=== PATIENT | female | born 1960 | race African-American/Black ===

== ENCOUNTER 2024-12-09 17:11 | Emergency (ER) | payer OTHER ==
[~2024-12-09] VITALS: Ht 167.6 cm; Wt 91.0 kg
[~2024-12-09 17:11] MED LIST: AMLO10TA80; ASPI-1079 PO; ATOR40TA70; LEFL20TA21; LOSA100T33; METH4TAB17 MT; METO-539; OMEP20CA14
[2024-12-09 17:14] VITALS: O2SAT 99
[2024-12-09 19:04] LABS: BASOPHILS % 0.9 % (0.0-2.0); EOSINOPHILS % 1.0 % (0.0-5.0); HEMATOCRIT. 38.9 % (36.0-48.0); HEMOGLOBIN. 12.9 g/dL (12.0-16.0); LYMPHOCYTES % 15.6 % (20.0-50.0); MEAN PLATELET VOLUME 8.2 fl (7.4-10.4); MONOCYTES % 9.1 % (2.0-8.0); NEUTROPHILS % 73.4 % (40.0-76.0); PLATELET 274 x1000/uL (130-400); RED BLOOD CELL COUNT 4.57 mill/uL (4.2-5.4); RED CELL DISTRIBUTION WIDTH 15.7 % (11.6-14.6)
[2024-12-09 19:17] LABS: CREATININE 1.2 mg/dL (0.6-1.0); UREA NITROGEN BLOOD 15 mg/dL (9-23)
[2024-12-09 19:19] LABS: TROPONIN I HIGH SENSITIVITY 5 ng/L (3.0-34)
[2024-12-09] MEDS: KETOROLAC 15MG/ML VIAL IV NR (19:24)
[2024-12-09] MEDS ORDERED: LORAZEPAM 1MG TABLET PO ONE (22:00)
[2024-12-09 22:18] LABS: TROPONIN I HIGH SENSITIVITY 6 ng/L (3.0-34)
[2024-12-09] MEDS: LORAZEPAM 1MG TABLET PO SCH (23:54)
[2024-12-09] MEDS: IOHEXOL-350 100 ML BOTTLE ONE (23:56)
[2024-12-10 01:09] VITALS: BP 125/76; PULSE 76; RESP 26; TEMP 36.6; O2SAT 99
== END 2024-12-10 01:33 | disposition home or self-care (01) ==
LOC: ER 17:11 → CMPBEDREQ 12-10 07:40
DX: F45.8 Other somatoform disorders (principal); F41.0 Panic disorder [episodic paroxysmal anxiety]; E78.00 Pure hypercholesterolemia, unspecified; I11.0 Hypertensive heart disease with heart failure; I50.9 Heart failure, unspecified; I48.91 Unspecified atrial fibrillation; Z79.69 Long term (current) use of other immunomodulators and immunosuppressants; Z79.899 Other long term (current) drug therapy; Z88.0 Allergy status to penicillin; Z88.5 Allergy status to narcotic agent; Z88.8 Allergy status to other drugs, medicaments and biological substances
CPT/HCPCS: 99285; 96374; 71275; 71045; 80048; 83880; 85025; 84484; 36415; 93005; J1885; Q9967